=== PATIENT | female | born 1965 | race Caucasian/White ===

== ENCOUNTER → 2023-03-14 | Day surgery (SDC) | payer OTHER ==
[2023-03-11 12:30] VITALS: BMI 25.0
[~2023-03-14] MED LIST: ACETAMINOPHEN 325 MG TABLET (FP) PO PRN; LACTATED RINGERS SOLUTION 1,000 ML IV SCH
[2023-03-14] MEDS: CYCLOPENTOLATE HCL 1% OPHTH SOLN 2 ML BOTTLE OD SCH ×3 (06:55→07:05)
[2023-03-14] MEDS: PHENYLEPHRINE 2.5% OPHTH SOLN 15 ML BOTTLE OD SCH ×3 (06:55→07:05)
[2023-03-14] MEDS: TROPICAMIDE 1% OPHTH SOLN 15 ML BOTTLE OD SCH ×3 (06:55→07:05)
[2023-03-14] MEDS: KETOROLAC TROMETHAMINE 0.5% EYE DROP 1 DROP DROPS OD SCH ×3 (06:55→07:05)
[2023-03-14] MEDS: OFLOXACIN 0.3% OPHTHALMIC SOLUTION 5 ML BOTTLE OD SCH ×3 (06:55→07:05)
[2023-03-14 08:38] VITALS: RESP 18; TEMP 97.5
[2023-03-14 08:48] VITALS: BP 112/69; PULSE 67
== END | disposition home or self-care (01) ==
LOC: FASU 09:30
PROVIDERS: ATTEND Ophthalmology
PROC: 08RJ3JZ Replacement of Right Lens with Synthetic Substitute, Percutaneous Approach (ICD-10-PCS; principal; 2023-03-14 07:56)
DX: H25.11 Age-related nuclear cataract, right eye (principal)
CPT/HCPCS: 66984; V2632